=== PATIENT | female | born 1985 | race Caucasian/White ===

== ENCOUNTER 2020-06-15 13:09 | Emergency (ER) | payer SELFPAY ==
[2020-06-15 14:50] VITALS: BP 137/79; PULSE 76; RESP 18; TEMP 37.5; O2SAT 94; BMI 45.1
--- NOTE | 2020-06-15 16:48 | ED_ITS ---
HPI - Abdominal Pain General Chief Complaint: Abdominal Pain Stated Complaint: abd pain, n/v/ Time Seen by Provider: 06/15/20 15:31 Source: patient Mode of arrival: ambulatory Limitations: no limitations History of Present Illness HPI narrative: 34-year-old female previously healthy here with complaints of abdominal pain for the last 3 weeks. The patient tells me she has had mid abdominal pain for the last 3 weeks which is worsened with eating and is improved with passing flatus. She tells me she has struggled with alternating diarrhea and constipation. She intermittently takes laxatives to help her move the bowels but they are very hard and small. And at times due to laxative she has diarrhea. She has had some intermittent associated nausea and vomiting after eating. Denies fevers, chills, urinary symptoms. No rectal bleeding, hematemesis. MD elicited complaint: abdominal pain Pertinent past history: none Onset (ago): week(s) Pain Consistency: intermittent Location: epigastric Severity: mild Quality: burning Radiation: epigastric Migration to: no migration Exacerbating factors: eating Relieving factors: bowel movement and other (flatus ) Associated symptoms: nausea, vomiting, diarrhea and constipation Treatments prior to arrival: other (laxatives ) Related Data Previous Rx's Medication Instructions Recorded dicyclomine 10 mg PO TID PRN #10 cap 06/15/20 omeprazole 20 mg PO DAILY #20 cap 06/15/20 Allergies Allergy/AdvReac Type Severity Reaction Status Date / Time codeine Allergy Rash Verified 06/15/20 14:54 Review of Systems Review of Systems Yes all other systems are reviewed and are negative Constitutional: Reports no additional constitutional complaints, Denies body ache(s), Denies chills, Denies fever(s), Denies headache(s) and Denies weakness Eyes: Reports no additional eye complaints and Denies change in vision Reports system reviewed and no additional complaints, except as documented, Denies dizziness, Denies headache(s), Denies nasal congestion, Denies nasal discharge and Denies neck pain Cardiovascular: Reports no additional cardiovascular complaints, Denies chest pain, Denies leg edema and Denies dyspnea Respiratory: Reports no additional respiratory complaints, Denies cough and Denies dyspnea Gastrointestinal: Reports no additional gastrointestinal complaints, Reports abdominal pain, Reports constipation, Reports diarrhea, Reports nausea and Reports vomiting Genitourinary: Reports no additional female genitourinary complaints and Denies urinary incontinence Musculoskeletal: Reports no additional musculoskeletal complaints, Denies back pain, Denies arthralgias, Denies joint swelling, Denies neck pain, Denies numbness and Denies tingling Skin/Breast: Reports system reviewed and no additional complaints, except as docu and Denies rash Reports system reviewed and no additional complaints, except as documented, Denies Abnormal speech present, Denies dizziness, Denies headache(s), Denies numbness, Denies tingling and Denies weakness Physical Exam Vital Signs: Vital Signs: Vital Signs Temp Pulse Resp BP Pulse Ox 06/15/20 14:50 99.5 F 76 18 137/79 94 Body Mass Index 45.1 Const: General: cooperative, healthy appearing, comfortable and no acute distress Orientation/consciousness: patient oriented x3 Limitations: no limitations HENMT: Head: Yes normal to inspection Ears: hearing grossly normal bilaterally General nose exam: Normal external nose present Face and sinus: Yes normal facial exam Mouth: Normal oral and palatal mucosa present Throat: Yes posterior oropharynx normal Eyes: General: appearance normal, both eyes and all related structures Pupils: Equal, round and reactive pupils present Neck: Neck: Yes normal visual inspection Chest: Chest palpation & inspection: normal inspection of the chest Resp: Effort & Inspection: normal respiratory effort Auscultation: clear to auscultation bilaterally Cardio: Rate: regular rate Rhythm: regular rhythm Peripheral pulses: Peripheral pulses 2+ throughout GI: Other: +morbidely obese Inspection: Yes normal to inspection Palpation (GI): Soft to palpation and nontender Auscultation: normal bowel sounds Back/Spine/Pelvis: Thoracic/Lumbar Spine: thoracic and lumbar spine normal to inspection Skin: General skin exam: no rashes or lesions noted Neuro: General: patient oriented x3, no focal motor deficits and normal sensation to monofilament Cranial nerves: Yes Equal, round and reactive pupils present Cognition (Neuro): normal cognition Speech: No Abnormal speech present Gait exam (Neuro): Normal gait present Motor exam (neuro): 5/5 motor strength present throughout Extrem: General: Yes normal to inspection Course Course Course Narrative: 34-year-old female here with intermittent abdominal pain with alternating diarrhea and constipation and associated nausea and vomiting post eating for the last 2 weeks. Exam patient is very well-appearing, well- hydrated appearing her abdomen is soft and nontender. Most of her symptoms occur after eating food and are improved with passing flatus. HPI sounds more likely IBS. Will check labs, UA, ur . 1800- Labs are unremarkable. UA and urine negative. Repeat abdominal exam benign. No focal abdominal pain on exam. Tolerating p.o. with no issues. Will start on PPI and give Bentyl p.r.n. for home. Reviewed worrisome signs and symptoms when to return to the emergency department. Will have follow-up with GI outpatient. Comfortable discharge home. MDM - Abdominal Pain Medical Records Attestation: I reviewed the patient's medical records. Lab Data Attestation: I reviewed the patient's lab results. Result diagrams: 06/15/20 17:00 06/15/20 17:00 Labs: Lab Results 06/15/20 06/15/20 06/15/20 Range/Units 17:00 17:00 17:00 WBC 12.6 H (4.8-10.8) X10*3/uL RBC 4.66 (4.20-5.50) X10*6/uL Hgb 13.1 (12.0-16.0) g/dl Hct 40.2 (37-47) % MCV 86.3 (80-98) fL MCH 28.1 (27.0-33.0) pg MCHC 32.6 (31.0-35.0) g/dl RDW 13.1 (11.0-16.0) % Plt Count 333 (160-400) X10*3/uL MPV 9.7 (9.4-12.3) fL Immature Gran % (Auto) 1.1 H (0.0-0.4) % Neut % (Auto) 72.5 (45-73) % Lymph % (Auto) 18.6 L (20-40) % Kane % (Auto) 3.3 (2-11) % Eos % (Auto) 3.9 (0-4) % Baso % (Auto) 0.6 (0-2) % Lymph # (Auto) 2.4 (1.2-4.9) X10*3/uL [place] # (Auto) 0.4 (0.1-1.2) X10*3/uL Eos # (Auto) 0.5 H (0.0-0.4) X10*3/uL Baso # (Auto) 0.1 (0.0-0.2) X10*3/uL Abs Immat Gran (auto) 0.14 H (0.00-0.03) X10*3/uL Absolute Neuts (auto) 9.2 H (2.0-8.3) X10*3/uL Absolute Nucleated RBC 0.000 (0.0-0.012) X10*3/uL Nucleated RBC % (auto) 0.0 (0.0-0.2) /100WBC Sodium 138 (135-145) mmol/L Potassium 4.2 (3.3-5.1) mmol/l Chloride 100 (96-108) mmol/L Carbon Dioxide 29 (22-29) mmol/L Anion Gap 13 (12-20) BUN 11 (9-16) mg/dL Creatinine 1.03 (0.5-1.4) mg/dL Estim Creat Clear Calc 105.9 Estimated GFR > 60 Random Glucose 110 (60-115) mg/dL Calcium 9.0 (8.4-10.2) mg/dL Total Bilirubin 0.4 (0.0-1.0) mg/dL Direct Bilirubin 0.2 (0.0-0.5) mg/dL AST 54 H (5-31) U/L ALT 42 H (0-31) U/L Alkaline Phosphatase 96 (39-117) U/L Total Protein 7.7 (6.5-8.0) g/dL Albumin 4.3 (3.5-5.0) g/dL Lipase 20 (8-78) U/L Urine Color YELLOW Urine Appearance CLEAR Urine pH 5.5 (5.0-8.0) Ur Specific [place] >= 1.030 H (1.005-1.025) Urine Protein NEG (NEG-TRACE) MG/DL Urine Glucose (UA) NEG (NEG) MG/DL Urine Ketones NEG (NEG) MG/DL Urine Blood NEG (NEG) Urine Nitrite NEG (NEG) Ur Leukocyte Esterase NEG (NEG) Urine Test NEGATIVE (NEGATIVE) Discharge Plan Discharge Clinical Impression: Irritable bowel syndrome Qualifiers: Irritable bowel syndrome type: with both diarrhea and constipation Qualified Code(s): K58.2 - Mixed irritable bowel syndrome Gastritis Qualifiers: Gastritis type: unspecified gastritis Chronicity: acute Gastritis bleeding: without bleeding Qualified Code(s): K29.00 - Acute gastritis without bleeding Patient Disposition: Home, Self-Care Instructions: Gastritis (ED), Irritable Bowel Syndrome (ED) Additional Instructions: Your labs and urine are unremarkable today [place] diet (limit dairy, fatty/greasy foods). After eating stay sitting upright for at least 30 minutes. Avoid eating before bed. Call GI for a follow-up appointment as discussed Prescriptions: New omeprazole 20 mg capsule,delayed release(DR/EC) 20 mg PO DAILY Qty: 20 RF: 0 dicyclomine 10 mg capsule 10 mg PO TID PRN (Reason: pain) Qty: 10 RF: 0 Referrals: Jez Rosenberg [Physician] - 2 days [facility] Past Medical History Attestation statement: The following information was validated with the patient. Source: obtained from family and nursing notes reviewed Social History Social History Alcohol intake: unknown Smoking Status: Unknown if ever smoked Use of substances other than those prescribed or required for medical reasons: No Advance Directives: No Advance Directives Information Provided: Yes
[2020-06-15 17:05] LABS: MANUAL DIFF FLAG NO
[2020-06-15 17:08] LABS: Glucose Urine UA NEG (NEG); Leukocyte Esterase Urine NEG (NEG); Nitrite Urine NEG (NEG); PH 5.5 (5.0-8.0); Specific Gravity - Urine >= 1.030 (1.005-1.025); Urine Blood NEG (NEG); Urine Ketones NEG (NEG); Urine Protein NEG (NEG-TRACE)
[2020-06-15 17:10] LABS: Appearance Urine CLEAR; Color Urine YELLOW
[2020-06-15 17:11] LABS: UPreg QC Valid YES; Urine Pregnancy NEGATIVE (NEGATIVE)
[2020-06-15 17:19] LABS: Basophils Absolute Auto 0.1 X10*3/uL (0.0-0.2); Basophils Percent Auto 0.6 % (0-2); Eosinophils Absolute Auto 0.5 X10*3/uL (0.0-0.4); Eosinophils Percent Auto 3.9 % (0-4); Hematocrit 40.2 % (37-47); Hemoglobin 13.1 g/dl (12.0-16.0); Imm Gran Abs Auto 0.14 X10*3/uL (0.00-0.03); Imm Gran Pct Auto 1.1 % (0.0-0.4); Lymphocytes Absolute Auto 2.4 X10*3/uL (1.2-4.9); Lymphocytes Percent Auto 18.6 % (20-40); Mean Corpuscular HGB Conc 32.6 g/dl (31.0-35.0); Mean Corpuscular Hemoglobin 28.1 pg (27.0-33.0); Mean Corpuscular Volume 86.3 fL (80-98); Mean Platelet Volume 9.7 fL (9.4-12.3); Monocytes Absolute Auto 0.4 X10*3/uL (0.1-1.2); Monocytes Percent Auto 3.3 % (2-11); Neutrophils Absolute Auto 9.2 X10*3/uL (2.0-8.3); Neutrophils Percent Auto 72.5 % (45-73); Platelet Count 333 X10*3/uL (160-400); Red Blood Count 4.66 X10*6/uL (4.20-5.50); Red Cell Distribution Width 13.1 % (11.0-16.0); White Blood Count 12.6 X10*3/uL (4.8-10.8)
[2020-06-15 17:56] LABS: Alanine Aminotransferase 42 U/L (0-31); Albumin Level 4.3 g/dL (3.5-5.0); Alkaline Phosphatase 96 U/L (39-117); Anion Gap 13 (12-20); Aspartate Amino Transferase 54 U/L (5-31); Bilirubin Direct 0.2 mg/dL (0.0-0.5); Bilirubin Total 0.4 mg/dL (0.0-1.0); Blood Urea Nitrogen 11 mg/dL (9-16); Carbon Dioxide 29 mmol/L (22-29); Chloride 100 mmol/L (96-108); Creatinine Clr Calc Pharmacy 105.9; Estimated Glomerular Filt Rate > 60; Glucose Random 110 mg/dL (60-115); Lipase 20 U/L (8-78); Potassium 4.2 mmol/l (3.3-5.1); Sodium 138 mmol/L (135-145); Total Protein 7.7 g/dL (6.5-8.0)
== END 2020-06-15 18:24 | disposition home or self-care (01) ==
PROVIDERS: Nurse Practitioner Family; Emergency Provider Emergency Medicine
DX: K29.00 Acute gastritis without bleeding (principal); K58.2 Mixed irritable bowel syndrome
CPT/HCPCS: 36415; 80048; 80076; 81003; 81025; 83690; 85025; 99283; 99284

== ENCOUNTER 2022-03-11 11:19 | Outpatient (REF) | payer MEDICAID, SELFPAY ==
--- NOTE | ~2022-03-11 | US_ITS ---
EXAMINATION: US PELVIS CLINICAL INFORMATION: Abnormal uterine bleeding. LMP 4-5 years ago. COMPARISON: None TECHNIQUE: Ultrasound of the pelvis is performed using both transabdominal and transvaginal transducers along with Doppler. Transvaginal imaging is performed due to inadequate visualization transabdominally. FINDINGS: The uterus is anteverted and anteflexed measuring 7.2 x 2.8 x 4.5 cm. There is a somewhat atypical architecture of the fundus, raising the possibility of an underlying congenital uterine anomaly. No fibroid identified. The endometrium measures 0.7 cm in thickness and demonstrates some nonspecific cystic observations. The left ovary is not visualized. The right ovary is better delineated on transabdominal images although not entirely visualized measuring approximately 1.7 x 1.4 x 1.8 cm. No free fluid. US/US pelvic and transvaginal IMPRESSION: 1. Questionable congenital uterine anomaly such as bicornuate uterus, suboptimally in this examination. Recommend correlation with a pelvic MRI. 2. Nonspecific endometrial cysts, which could be seen with adenomyosis. This could be also assessed with the above recommended MRI. 3. Suboptimal visualization of the ovaries.
== END 2022-03-11 11:20 | disposition home or self-care (01) ==
LOC: HO.US 11:19
PROVIDERS: Visit Provider Registered Nurse
DX: N93.9 Abnormal uterine and vaginal bleeding, unspecified (principal)
CPT/HCPCS: 76830; 76856

== ENCOUNTER 2023-03-28 09:33 | Emergency (ER) | payer MEDICAID, SELFPAY ==
[2023-03-28 09:45] VITALS: BP 138/87; PULSE 61; RESP 18; TEMP 36.1; O2SAT 99; BMI 57.3
--- NOTE | 2023-03-28 10:16 | ED_ITS ---
HPI - Dental/Oral General Chief complaint: Dental/Oral Stated complaint: facial swelling dental Time Seen by Provider: 03/28/23 09:52 Source: patient and RN notes reviewed Mode of arrival: ambulatory Limitations: no limitations History of Present Illness HPI Narrative: This is a 37-year-old female, past medical history of fibromyalgia, chronic viral hep C, ADHD, bipolar disorder, anxiety, and depression, presenting to the emergency department for evaluation of right-sided facial pain and swelling x2 days. Patient reports that she is in the process of getting all of her teeth extracted, and has an appointment regarding this next week. She states that she has noticed some increasing right-sided upper dental pain for the last several days and woke up this morning with increased facial swelling. She called her dentist office however is unable to be seen until Thursday. Patient denies any fevers, chills, shortness of breath, nausea, vomiting or diarrhea. She has been taking ibuprofen for her symptoms which has provided her with minimal relief. No other complaints or concerns at this time. MD Complaint: tooth pain Location: Tooth # Onset (ago): day(s) Duration: constant Severity: moderate Relieving factors: NSAIDs Exacerbating factors: nothing Context: history of dental caries Treatment prior to arrival: none Related Data Home Medications Medication Instructions Recorded Confirmed clonidine HCl 0.1 mg tablet 0.1 mg PO Q8H PRN anxiety 07/12/20 09/18/20 methadone 10 mg/mL oral 80 mg PO DAILY 07/12/20 09/18/20 concentrate (Methadone Intensol) Previous Rx's Medication Instructions Recorded albuterol sulfate 90 mcg/actuation 2 puff inhalation Q6H PRN 07/12/20 aerosol inhaler shortness of breath or wheezing #8.5 grams dicyclomine 10 mg capsule 10 mg PO TID PRN pain 1 month #60 07/12/20 caps fluticasone 100 mcg-salmeterol 50 1 ea PO DAILY #60 ea 11/20/20 mcg/dose blistr powdr for inhalation (Advair Diskus) omeprazole 20 mg capsule,delayed 20 mg PO DAILY #30 caps 12/27/20 release amoxicillin 875 mg-potassium 1 tab PO BID 7 days #14 tabs 03/28/23 clavulanate 125 mg tablet ibuprofen 600 mg tablet 600 mg PO Q6H PRN pain #30 tabs 03/28/23 Allergies Allergy/AdvReac Type Severity Reaction Status Date / Time codeine Allergy Rash Verified 09/18/20 12:23 Review of Systems Review of Systems: Yes all other systems are reviewed and are negative [facility] Past Medical History Surgical History (Updated 09/03/21 @ 09:16 by FABIANA Morales) History of cholecystectomy Social History Social History Alcohol intake: unknown Advance Directives: No Advance Directives Information Provided: No Physical Exam Vital Signs: Vital Signs: Last Vital Signs Temp 97.0 F 03/28/23 09:45 Pulse 61 03/28/23 09:45 Resp 18 03/28/23 09:45 BP 138/87 03/28/23 09:45 Pulse Ox 99 03/28/23 09:45 O2 Del Method Room Air 03/28/23 09:45 BMI result Body Mass Index 57.3 Const: Other: General: Awake, alert, and oriented X3. No acute distress. Mild right-sided facial swelling, without erythema or induration, facial swelling extends just inferior to the warm. HEENT: Normal inspection, uvula midline, no oropharyngeal erythema or edema. Airway patent. see below for dental exam CVS: Normal heart rate and rhythm. Pulses normal. Respiratory: No respiratory distress, lungs clear to auscultation bilaterally. Skin: Warm, dry, no rashes noted to exposed skin. Normal skin color. Normal skin turgor. Extremities: Normal to inspection Neuro: Oriented X 3. No motor deficit. No sensory deficit. HEENT: Teeth image: 1. Teeth 1, 2, and 3 tender to palpation with mild dental decay. No surrounding gingival erythema, edema, fluctuance or induration. Medical Decision Making Medical Decision Making MDM Narrative: 37-year-old female presenting to emergency department for evaluation of right- sided facial swelling and dental pain. Patient is nontoxic appearing, all vital signs within normal limits. Patient is in the process of getting all of her teeth removed, last on antibiotics multiple months ago. She has an appointment with her dentist on Thursday. Patient's symptoms and presentation consistent with dental abscess, will treat with Augmentin. Encouraged to take the full course even if feeling better. Given return precautions if any new or worsening sympto ms occur. Patient understands and agrees with plan. Patient stable for discharge. Differential Diagnosis Differential Diagnoses: The differential diagnosis associated with the presentation includes Dental abscess, dental decay, dental pain, TMJ Discharge Plan Discharge Clinical Impression: Dental abscess, Pain, dental Patient Disposition: Home, Self-Care Instructions: Dental Abscess (ED), Toothache (ED) Additional Instructions: Please take prescribed antibiotic as directed. Finish the entire course even if your feeling better. Take prescribed ibuprofen as directed as needed for pain. You may alternate this with Tylenol. Make sure you eat with taking ibuprofen as this can cause upset stomach. Watch for any new or worsening symptoms including but not limited to worsening swelling, fevers or chills, worsening pain. If any of these occur or any other new or worsening symptoms please return for re-evaluation. Follow-up with your dentist as scheduled next week. Prescriptions: New ibuprofen 600 mg tablet 600 mg PO Q6H PRN (Reason: pain) Qty: 30 0RF amoxicillin-pot clavulanate 875-125 mg tablet 1 tab PO BID 7 Days Qty: 14 0RF No Action fluticasone propion-salmeterol [Advair Diskus] 100-50 mcg/dose blister with device 1 ea PO DAILY Qty: 60 2RF omeprazole 20 mg capsule,delayed release(DR/EC) 20 mg PO DAILY Qty: 30 0RF methadone [Methadone Intensol] 10 mg/mL concentrate 80 mg PO DAILY clonidine HCl 0.1 mg tablet 0.1 mg PO Q8H PRN (Reason: anxiety) dicyclomine 10 mg capsule 10 mg PO TID PRN (Reason: pain) 30 Days Qty: 60 1RF albuterol sulfate 90 mcg/actuation HFA aerosol inhaler 2 puff inhalation Q6H PRN (Reason: shortness of breath or wheezing) Qty: 8.5 4RF Interventions: ED Discharge Assessment Last Done: 03/28/23 10:37 Discharge Date/Time: 03/28/23 10:37
== END 2023-03-28 10:37 | disposition home or self-care (01) ==
PROVIDERS: Emergency Provider Emergency Medicine; PCP Registered Nurse
DX: K04.7 Periapical abscess without sinus (principal); K08.89 Other specified disorders of teeth and supporting structures
CPT/HCPCS: 99283

== ENCOUNTER 2023-04-02 15:35 | Outpatient (REF) | payer MEDICAID, SELFPAY ==
[2023-04-02 17:25] LABS: MANUAL DIFF FLAG NO
[2023-04-02 18:08] LABS: Basophils Absolute Auto 0.1 X10*3/uL (0.0-0.2); Basophils Percent Auto 0.6 % (0-2); Eosinophils Absolute Auto 0.5 X10*3/uL (0.0-0.4); Eosinophils Percent Auto 5.3 % (0-4); Hematocrit 38.8 % (37.0-47.0); Hemoglobin 12.6 g/dl (12.0-16.0); Imm Gran Abs Auto 0.04 X10*3/uL (0.00-0.03); Imm Gran Pct Auto 0.4 % (0.0-0.4); Lymphocytes Absolute Auto 2.6 X10*3/uL (1.2-4.9); Lymphocytes Percent Auto 28.6 % (20-40); Mean Corpuscular HGB Conc 32.5 g/dl (31.0-35.0); Mean Corpuscular Hemoglobin 27.3 pg (27.0-33.0); Mean Platelet Volume 10.3 fL (9.4-12.3); Monocytes Absolute Auto 0.5 X10*3/uL (0.1-1.2); Monocytes Percent Auto 5.5 % (2-11); Neutrophils Absolute Auto 5.4 x10*3/uL (2.0-8.3); Neutrophils Percent Auto 59.6 % (45-73); Platelet Count 384 X10*3/uL (160-400); Red Blood Count 4.62 X10*6/uL (4.20-5.50); Red Cell Distribution Width 12.9 % (11.0-16.0)
[2023-04-02 18:47] LABS: Alanine Aminotransferase 27 U/L (0-31); Albumin Level 4.3 g/dL (3.5-5.0); Alkaline Phosphatase 82 U/L (39-117); Anion Gap 13 (12-20); Aspartate Amino Transferase 27 U/L (5-31); Bilirubin Total 0.2 mg/dL (0.0-1.0); Blood Urea Nitrogen 12 mg/dL (9-16); Calcium 9.9 mg/dL (8.4-10.2); Carbon Dioxide 30 mmol/L (22-29); Chloride 103 mmol/L (96-108); Estimated Glomerular Filt Rate > 60; Glucose Random 84 mg/dL (60-115); Potassium 4.1 mmol/L (3.3-5.1); Sodium 142 mmol/L (135-145); Total Protein 7.7 g/dL (6.5-8.0)
[2023-04-08 23:13] LABS: Estradiol Ultra Sensitive 23 pg/mL
== END 2023-04-02 15:36 | disposition home or self-care (01) ==
LOC: HO.HHCL 15:35
PROVIDERS: Visit Provider Registered Nurse
DX: N91.1 Secondary amenorrhea (principal)
CPT/HCPCS: 36415; 80053; 82670; 85025

== ENCOUNTER 2023-04-20 13:15 | Emergency (ER) | payer MEDICAID, SELFPAY ==
[2023-04-20 13:49] VITALS: BP 139/88; PULSE 76; RESP 16; TEMP 36.6; O2SAT 97; BMI 56.0
--- NOTE | 2023-04-20 13:50 | ED_ITS ---
HPI - General Adult General Chief complaint: General Medical Stated complaint: neck/ shoulder pain Time Seen by Provider: 04/20/23 13:59 Source: patient Mode of arrival: ambulatory Limitations: no limitations History of Present Illness HPI narrative: 37-year-old female with a history fibromyalgia, ADHD, former substance abuse, history of hepatitis-C, ADHD, asthma, depression, anxiety, bipolar disorder, HLD who presents to the ER for evaluation of nontraumatic neck pain for the last 3 days along with possible recurrent right upper dental infection. Patient states that for the last 3 days she has had bilateral neck pain radiating to the base of her skull, her bilateral shoulders and down her back. It is worse with movement and palpation. She has been taking ibuprofen and trying to take hot showers to relax the muscles with minimal relief. She denies any injury or trauma. she denies any numbness or tingling radiating into her arms. patient also reports being seen here in the beginning of March for a dental infection. She completed a course of antibiotics. A few days ago she noticed that the abscess ruptured and had drainage of pus. She reports ongoing pain in the tooth. She has an appointment with a oral surgeon coming up for complete dental extractions. She denies any difficulty opening or closing her jaw. No facial swelling. No fever or chills. MD complaint: Neck and shoulder pain, right upper dental pain Location: neck Radiation: back and extremity Severity: moderate Quality: stabbing and aching Pain Consistency: constant Relieving factors: movement Exacerbating factors: rest Associated symptoms: denies other symptoms Treatments prior to arrival: none Related Data Home Medications Medication Instructions Recorded Confirmed clonidine HCl 0.1 mg tablet 0.1 mg PO Q8H PRN anxiety 07/12/20 09/18/20 methadone 10 mg/mL oral 80 mg PO DAILY 07/12/20 09/18/20 concentrate (Methadone Intensol) Previous Rx's Medication Instructions Recorded albuterol sulfate 90 mcg/actuation 2 puff inhalation Q6H PRN 07/12/20 aerosol inhaler shortness of breath or wheezing #8.5 grams dicyclomine 10 mg capsule 10 mg PO TID PRN pain 1 month #60 07/12/20 caps fluticasone 100 mcg-salmeterol 50 1 ea PO DAILY #60 ea 11/20/20 mcg/dose blistr powdr for inhalation (Advair Diskus) omeprazole 20 mg capsule,delayed 20 mg PO DAILY #30 caps 12/27/20 release amoxicillin 875 mg-potassium 1 tab PO BID 7 days #14 tabs 03/28/23 clavulanate 125 mg tablet ibuprofen 600 mg tablet 600 mg PO Q6H PRN pain #30 tabs 03/28/23 amoxicillin 875 mg-potassium 1 tab PO BID #20 tabs 04/20/23 clavulanate 125 mg tablet chlorhexidine gluconate 0.12 % 15 ml buccal BID #120 mL 04/20/23 mouthwash (Peridex) cyclobenzaprine 10 mg tablet 10 mg PO TID PRN muscle spasm #14 04/20/23 tabs lidocaine 5 % topical patch 1 patch topical DAILY #15 ea 04/20/23 Allergies Allergy/AdvReac Type Severity Reaction Status Date / Time codeine Allergy Rash Verified 04/20/23 13:49 Review of Systems Review of Systems: Yes all other systems are reviewed and are negative PMFSH Past Medical History Surgical History (Updated 09/03/21 @ 09:16 by FABIANA Morales) History of cholecystectomy Social History Social History Alcohol intake: unknown Advance Directives: No Advance Directives Information Provided: Yes Physical Exam ED Vital Signs: Vital Signs - 24 hr 04/20/23 13:49 Temperature 97.8 F Pulse Rate 76 Respiratory Rate 16 Blood Pressure 139/88 Pulse Oximetry 97 Oxygen Delivery Method Room Air BMI result Body Mass Index 56.0 Appearance: Alert. Oriented X3. No acute distress. Head: normocephalic, atraumatic. Eyes: Pupils equal, round and reactive to light. ENT: Pharynx with moist mucus membranes. poor dentition. tooth #5 with decay and assocaited gingival swelling, pustule draining purulent material. No trisumus. No tonsillar swelling or exudate. Neck: Normal inspection. Neck supple. No anterior neck swelling. Soft tissue tenderness bilaterally with palpable spasm of upper trapezius. CVS: Normal heart rate and rhythm. Pulses normal. Respiratory: No respiratory distress. Breath sounds normal. Skin: Skin warm and dry. Normal skin color. Normal skin turgor. No rashes. Extremities: No lower extremity edema. No joint swelling. Neuro/psych: Oriented X 3. No motor deficit. No sensory deficit. CN II-XII intact. Normal speech and cognition. Course Course Course Narrative: This is an RME: Additional HPI, ROS, PE not included below will be deferred to primary provider. 37 year old female presenting with three days of atraumatic bilateral neck pain. Denies heavy lifting or strenuous exercise. Also had a recent dental abscess that was treated here and believes it has not resolved since. The tooth is on the top right. Denies fevers, chills, paresthesias. Patient rates the neck/back pain an 8-9/10. Plan: [facility] Medical Decision Making Medical Decision Making MDM Narrative: 37-year-old female presents to the ER for evaluation nontraumatic bilateral posterior neck pain that radiates her bilateral shoulders for the last 3 days. She has palpable soft tissue tenderness and muscular spasm on examination. No meningeal signs. Exam and clinical presentation are most consistent with cervical strain and muscle spasm. She also reports right upper dental pain, swelling, purulent drainage, recently treated for an abscess. She has plan for entire mouth extractions with oral surgeon coming up. She has no trismus on examination, no facial swelling. She has an area of drainage present, no need for additional incision and drainage today. Will restart her on antibiotics, add antiseptic mouthwash and muscle relaxer for her neck/back pain at this time patient is stable for discharge home with outpatient follow-up. Patient agrees with plan. Differential Diagnosis Differential Diagnoses: The differential diagnosis associated with the presentation includes Cervical strain/ cervical spasm, torticollis, cervical radiculopathy, fibromyalgia flare, less likely cervical fracture or meningitis dental abscess, dental decay, toothache, no evidence of Elver's angina External Record Review External record reviewed: Outpatient record, Prior outpatient labs and Prior outpatient radiology Prescription Management I considered prescription management with: Pain Medication and Antibiotic Chronic Conditions Patient?s care impacted by: Other ( fibromyalgia, poor dentition) Critical Care Time Critical Care Time Critical Care Time: No Discharge Plan Discharge Clinical Impression: Dental abscess, Cervical muscle strain Patient Disposition: Home, Self-Care Instructions: Cervical Strain (DC), Dental Abscess (ED) Additional Instructions: Your pain is most likely due to muscle strain and spasm. Use a heating pad on low/medium heat several times per day and gently massage as tolerated. Take medications as prescribed to help with pain and discomfort. Follow up with your Primary Care Doctor as needed. Take the prescribed antibiotics as directed, complete the entire course and do not miss any doses Follow up with your dentist. If you develop new or worsening symptoms call 911 or come back to the ER for further evaluation. Prescriptions: New amoxicillin-pot clavulanate 875-125 mg tablet 1 tab PO BID Qty: 20 0RF cyclobenzaprine 10 mg tablet 10 mg PO TID PRN (Reason: muscle spasm) Qty: 14 0RF lidocaine 5 % adhesive patch,medicated 1 patch topical DAILY Qty: 15 0RF Rx Instructions: leave on most painful area for up to 12 hrs chlorhexidine gluconate [Peridex] 0.12 % mouthwash 15 ml buccal BID Qty: 120 0RF No Action fluticasone propion-salmeterol [Advair Diskus] 100-50 mcg/dose blister with device 1 ea PO DAILY Qty: 60 2RF omeprazole 20 mg capsule,delayed release(DR/EC) 20 mg PO DAILY Qty: 30 0RF ibuprofen 600 mg tablet 600 mg PO Q6H PRN (Reason: pain) Qty: 30 0RF amoxicillin-pot clavulanate 875-125 mg tablet 1 tab PO BID 7 Days Qty: 14 0RF methadone [Methadone Intensol] 10 mg/mL concentrate 80 mg PO DAILY clonidine HCl 0.1 mg tablet 0.1 mg PO Q8H PRN (Reason: anxiety) dicyclomine 10 mg capsule 10 mg PO TID PRN (Reason: pain) 30 Days Qty: 60 1RF albuterol sulfate 90 mcg/actuation HFA aerosol inhaler 2 puff inhalation Q6H PRN (Reason: shortness of breath or wheezing) Qty: 8.5 4RF Discharge Date/Time: 04/20/23 15:18
== END 2023-04-20 15:18 | disposition home or self-care (01) ==
PROVIDERS: Emergency Provider Emergency Medicine; PCP Registered Nurse
DX: M54.2 Cervicalgia (principal); K04.7 Periapical abscess without sinus
CPT/HCPCS: 99281

== ENCOUNTER 2023-05-31 13:23 | Emergency (ER) | payer MEDICAID, SELFPAY ==
[2023-05-31 13:32] VITALS: BP 157/90; PULSE 77; RESP 20; TEMP 35.6; O2SAT 96; BMI 56.4
--- NOTE | 2023-05-31 13:38 | ED.GENADULT ---
HPI - General Adult General Chief complaint: Dental/Oral Stated complaint: Facial swelling Time Seen by Provider: 05/31/23 13:37 Source: patient Mode of arrival: ambulatory Limitations: no limitations History of Present Illness HPI narrative: 37 yold female presents to the ED for left lower facial swelling and tooth ache. patient states she has poor dental hygeine ( states all her teeth needs to be extracted). Patient this has happened before and improved with antibiotics. patient denies any drooling, change in voice, difficulty swallowing foods/liquids, chest pain, or shortenss of breath. Patient denies any new trauma. Related Data Home Medications Medication Instructions Recorded Confirmed clonidine HCl 0.1 mg tablet 0.1 mg PO Q8H PRN anxiety 07/12/20 09/18/20 methadone 10 mg/mL oral 80 mg PO DAILY 07/12/20 09/18/20 concentrate (Methadone Intensol) Previous Rx's Medication Instructions Recorded albuterol sulfate 90 mcg/actuation 2 puff inhalation Q6H PRN 07/12/20 aerosol inhaler shortness of breath or wheezing #8.5 grams dicyclomine 10 mg capsule 10 mg PO TID PRN pain 1 month #60 07/12/20 caps fluticasone 100 mcg-salmeterol 50 1 ea PO DAILY #60 ea 11/20/20 mcg/dose blistr powdr for inhalation (Advair Diskus) omeprazole 20 mg capsule,delayed 20 mg PO DAILY #30 caps 12/27/20 release amoxicillin 875 mg-potassium 1 tab PO BID 7 days #14 tabs 03/28/23 clavulanate 125 mg tablet ibuprofen 600 mg tablet 600 mg PO Q6H PRN pain #30 tabs 03/28/23 amoxicillin 875 mg-potassium 1 tab PO BID #20 tabs 04/20/23 clavulanate 125 mg tablet chlorhexidine gluconate 0.12 % 15 ml buccal BID #120 mL 04/20/23 mouthwash (Peridex) cyclobenzaprine 10 mg tablet 10 mg PO TID PRN muscle spasm #14 04/20/23 tabs lidocaine 5 % topical patch 1 patch topical DAILY #15 ea 04/20/23 amoxicillin 875 mg-potassium 1 tab PO Q12H 10 days #20 tabs 05/31/23 clavulanate 125 mg tablet naproxen 500 mg tablet 500 mg PO BID PRN pain #14 tabs 05/31/23 Allergies Allergy/AdvReac Type Severity Reaction Status Date / Time codeine Allergy Rash Verified 04/20/23 13:49 Review of Systems Review of Systems: TOotache and left lower facial swelling Yes all other systems are reviewed and are negative [facility] Past Medical History Surgical History (Updated 09/03/21 @ 09:16 by FABIANA Morales) History of cholecystectomy Social History Social History Alcohol intake: unknown Advance Directives: No Physical Exam ED Vital Signs: Vital Signs - 24 hr 05/31/23 13:32 Temperature 96.0 F L Pulse Rate 77 Respiratory Rate 20 Blood Pressure 157/90 H Pulse Oximetry 96 Oxygen Delivery Method Room Air BMI result Body Mass Index 56.4 Const General: cooperative, healthy appearing, comfortable, no acute distress, well developed and alert Orientation/consciousness: oriented to person, oriented to place, oriented to time and patient oriented x3 HENMT Other: Negative for drooling, change in voice, shortness of breath, or foaming Head: Yes normal to inspection, Yes No palpable skull fracture present, Yes normocephalic and Yes atraumatic Head images: 1. slight swelling and tenderness on palpation. negative for mass, redness, or fluctulance on palpation. Teeth image: 1. positive for yellow collection and tendenress. negative trismuss. negative for gum swelling or erythema. negative trismus. 2. positive for yellow collection and tendenress. negative trismuss. negative for gum swelling or erythema. Negative for trismus Throat: Yes posterior oropharynx normal, Yes tonsils normal and Yes uvula midline Eyes General: appearance normal, both eyes and all related structures Neck Neck: Yes normal visual inspection, Yes full ROM, Yes no lymphadenopathy, Yes no meningeal signs, Yes trachea midline, Yes supple, No anterior neck swelling and No tender Chest Chest palpation & inspection: normal inspection of the chest and normal palpation of entire chest wall Resp Effort & Inspection: normal respiratory effort and able to speak in complete sentences Auscultation: clear to auscultation bilaterally Cardio Jugular venous distension: no JVD Heart sounds: S1 normal heart sound present and S2 normal heart sound present GI Inspection: Yes normal to inspection and No abdominal wall ecchymosis Palpation (GI): Soft to palpation, not firm, nontender, no guarding and not rigid General: No CVA tenderness and Yes no CVA tenderness Back/Spine/Pelvis Back: no CVA tenderness, No CVA tenderness and No back tenderness Skin General skin exam: no rashes or lesions noted, elasticity normal and turgor normal Neuro General: oriented to person, oriented to place, oriented to time, patient oriented x3, gait normal, tone normal, moves all extremities, Normal light touch and pain sensation, no meningeal signs, CN's II-XI intact bilaterally and normal sensation to monofilament Extrem General: Yes normal to inspection and Yes full ROM Psych Appearance: grossly normal, well kempt and not disheveled Course Course Course Narrative: RME: 37 yold female presents to the ED for left lower facial swelling and tooth ache. patient states this has occurred before and improved with oral antiibiotics and motirn Medical Decision Making Medical Decision Making MDM Narrative: RME: 37 yold female presents to the ED for Left lower face swelling and infected tooth. Patient states no drooling, sOB, chest pain, neck swelling, or recent trauma. Patietn not in distress. LEft lower molar tooth is infected. Patient speaking in full sentences. Patient not in distress. Swelling due to infected tooth. not suspecting raquel angina, retropharyngeal abscess, peritonsillar abscess, or osteomyelitits. Patient informed to follow-up with dentist. Patient informed to return to ED immediately if she has any worrisome signs that were explained to her. Patient informed to follow-up with dentist Differential Diagnosis Differential Diagnoses: The differential diagnosis associated with the presentation includes (dental abscess, raquel angina, retropharyngeal abscess, pertitonsillar abscess) External Record Review External record reviewed: Other (prior Visits) Prescription Management I considered prescription management with: Pain Medication and Antibiotic Discharge Plan Discharge Clinical Impression: Toothache Patient Disposition: Home, Self-Care Instructions: Toothache (ED) Additional Instructions: Return to the ED for any increased swelling of jaw, swelling spreading to neck, drooling, change in voice, chest pain, shortness of breath, intractable fever, chills, worsening toothache, or any other concerning symptoms. Recommend follow-up with dentist. Cause of swelling from infected tooth that would need to be extracted Prescriptions: New amoxicillin-pot clavulanate 875-125 mg tablet 1 tab PO Q12H 10 Days Qty: 20 0RF naproxen 500 mg tablet 500 mg PO BID PRN (Reason: pain) Qty: 14 0RF No Action fluticasone propion-salmeterol [Advair Diskus] 100-50 mcg/dose blister with device 1 ea PO DAILY Qty: 60 2RF omeprazole 20 mg capsule,delayed release(DR/EC) 20 mg PO DAILY Qty: 30 0RF amoxicillin-pot clavulanate 875-125 mg tablet 1 tab PO BID Qty: 20 0RF cyclobenzaprine 10 mg tablet 10 mg PO TID PRN (Reason: muscle spasm) Qty: 14 0RF lidocaine 5 % adhesive patch,medicated 1 patch topical DAILY Qty: 15 0RF Rx Instructions: leave on most painful area for up to 12 hrs chlorhexidine gluconate [Peridex] 0.12 % mouthwash 15 ml buccal BID Qty: 120 0RF ibuprofen 600 mg tablet 600 mg PO Q6H PRN (Reason: pain) Qty: 30 0RF amoxicillin-pot clavulanate 875-125 mg tablet 1 tab PO BID 7 Days Qty: 14 0RF methadone [Methadone Intensol] 10 mg/mL concentrate 80 mg PO DAILY clonidine HCl 0.1 mg tablet 0.1 mg PO Q8H PRN (Reason: anxiety) dicyclomine 10 mg capsule 10 mg PO TID PRN (Reason: pain) 30 Days Qty: 60 1RF albuterol sulfate 90 mcg/actuation HFA aerosol inhaler 2 puff inhalation Q6H PRN (Reason: shortness of breath or wheezing) Qty: 8.5 4RF Interventions: ED Discharge Assessment Last Done: 05/31/23 13:49 Discharge Date/Time: 05/31/23 13:49 Print Language: Icelandic
== END 2023-05-31 13:49 | disposition home or self-care (01) ==
LOC: HO.ED 13:46
PROVIDERS: Emergency Provider Emergency Medicine; PCP Registered Nurse
DX: K08.89 Other specified disorders of teeth and supporting structures (principal); R22.1 Localized swelling, mass and lump, neck; Z79.899 Other long term (current) drug therapy
CPT/HCPCS: 99282

== ENCOUNTER 2023-06-18 10:08 | Outpatient (REF) | payer MEDICAID, SELFPAY ==
--- NOTE | ~2023-06-18 | XR_ITS ---
EXAMINATION: XR THORACIC SPINE, CERVICAL SPINE CLINICAL INFORMATION: Neck pain, back pain COMPARISON: None TECHNIQUE: 7 views of the cervical spine. 2 views. Evaluation severely limited due to body habitus. FINDINGS: Thoracic spine: Visualization severely limited due to body habitus. Surgical clips in the right upper quadrant of the abdomen. Moderate multilevel degenerative changes in the thoracic spine. No thoracic vertebral body compression fractures appreciated. CERVICAL SPINE: Straightening of the normal cervical lordosis. Visualization of C6 and C7 limited due to overlying soft tissues. Mild multilevel hypertrophic change in the mid to lower cervical spine. Disc space heights are maintained at C2-C6 levels. C6-C7 disc space poorly visualized due to overlying structures and cannot be assessed XR/XR thoracic spine 2V IMPRESSION: 1. Moderate multilevel degenerative changes in the thoracic spine. No thoracic vertebral body compression fractures appreciated. 2. Mild multilevel hypertrophic change in the mid to lower cervical spine. C6-C7 disc space poorly visualized due to overlying structures and cannot be assessed. 3. Severely limited visualization due to body habitus. Additional imaging with CT scan or MRI should be considered for better visualization as these modalities are much more sensitive for detection of fracture or other underlying pathology.
--- NOTE | ~2023-06-18 | XR_ITS ---
EXAMINATION: XR THORACIC SPINE, CERVICAL SPINE CLINICAL INFORMATION: Neck pain, back pain COMPARISON: None TECHNIQUE: 7 views of the cervical spine. 2 views. Evaluation severely limited due to body habitus. FINDINGS: Thoracic spine: Visualization severely limited due to body habitus. Surgical clips in the right upper quadrant of the abdomen. Moderate multilevel degenerative changes in the thoracic spine. No thoracic vertebral body compression fractures appreciated. CERVICAL SPINE: Straightening of the normal cervical lordosis. Visualization of C6 and C7 limited due to overlying soft tissues. Mild multilevel hypertrophic change in the mid to lower cervical spine. Disc space heights are maintained at C2-C6 levels. C6-C7 disc space poorly visualized due to overlying structures and cannot be assessed XR/XR cervical spine 5V IMPRESSION: 1. Moderate multilevel degenerative changes in the thoracic spine. No thoracic vertebral body compression fractures appreciated. 2. Mild multilevel hypertrophic change in the mid to lower cervical spine. C6-C7 disc space poorly visualized due to overlying structures and cannot be assessed. 3. Severely limited visualization due to body habitus. Additional imaging with CT scan or MRI should be considered for better visualization as these modalities are much more sensitive for detection of fracture or other underlying pathology.
== END 2023-06-18 10:09 | disposition home or self-care (01) ==
LOC: HO.HHCX 10:08
PROVIDERS: Visit Provider Registered Nurse
DX: M54.6 Pain in thoracic spine (principal); G89.29 Other chronic pain; M54.2 Cervicalgia
CPT/HCPCS: 72050; 72070

== ENCOUNTER 2023-08-05 10:58 | Outpatient (REF) | payer MEDICAID, SELFPAY ==
[2023-08-05 13:20] LABS: MANUAL DIFF FLAG NO
[2023-08-05 13:31] LABS: Basophils Absolute Auto 0.1 X10*3/uL (0.0-0.2); Basophils Percent Auto 0.8 % (0-2); Eosinophils Absolute Auto 0.4 X10*3/uL (0.0-0.4); Eosinophils Percent Auto 3.3 % (0-4); Hematocrit 44.5 % (37.0-47.0); Hemoglobin 14.6 g/dl (12.0-16.0); Imm Gran Abs Auto 0.07 X10*3/uL (0.00-0.03); Imm Gran Pct Auto 0.6 % (0.0-0.4); Lymphocytes Absolute Auto 3.1 X10*3/uL (1.2-4.9); Lymphocytes Percent Auto 25.6 % (20-40); Mean Corpuscular HGB Conc 32.8 g/dl (31.0-35.0); Mean Corpuscular Hemoglobin 27.5 pg (27.0-33.0); Mean Corpuscular Volume 83.8 fL (80.0-98.0); Mean Platelet Volume 10.3 fL (9.4-12.3); Monocytes Absolute Auto 0.5 X10*3/uL (0.1-1.2); Monocytes Percent Auto 4.2 % (2-11); Neutrophils Absolute Auto 7.8 x10*3/uL (2.0-8.3); Neutrophils Percent Auto 65.5 % (45-73); Platelet Count 367 X10*3/uL (160-400); Red Blood Count 5.31 X10*6/uL (4.20-5.50); Red Cell Distribution Width 12.3 % (11.0-16.0)
[2023-08-05 13:42] LABS: Anion Gap 16 (12-20); Blood Urea Nitrogen 13 mg/dL (9-16); Calcium 10.2 mg/dL (8.4-10.2); Carbon Dioxide 28 mmol/L (22-29); Chloride 99 mmol/L (96-108); Estimated Glomerular Filt Rate > 60; Glucose Random 115 mg/dL (60-115); Potassium 4.3 mmol/L (3.3-5.1); Sodium 139 mmol/L (135-145)
== END 2023-08-05 10:59 | disposition home or self-care (01) ==
LOC: HO.HHCL 10:58
PROVIDERS: Visit Provider Registered Nurse
DX: Z01.818 Encounter for other preprocedural examination (principal); I10 Essential (primary) hypertension
CPT/HCPCS: 36415; 80048; 85025

== ENCOUNTER 2023-11-12 17:46 | Outpatient (REF) | payer MEDICAID, SELFPAY ==
[2023-11-13 04:12] LABS: CT PCR NOT DETECTED (Not Detect.); NG PCR NOT DETECTED (Not Detect.)
== END 2023-11-12 17:47 | disposition home or self-care (01) ==
LOC: HO.HHCLNP 17:46
PROVIDERS: Visit Provider Family Medicine
DX: Z11.3 Encounter for screening for infections with a predominantly sexual mode of transmission (principal)
CPT/HCPCS: 0353U

== ENCOUNTER 2023-12-11 19:17 | Outpatient (REF) | payer MEDICAID, SELFPAY | END 2023-12-11 19:18 | disposition home or self-care (01) | LOC: HO.HHCLNP 19:17 | PROVIDERS: Visit Provider Emergency Medicine | DX: R39.9 Unspecified symptoms and signs involving the genitourinary system (principal) | CPT/HCPCS: 87086 ==

== ENCOUNTER 2024-02-05 09:23 | Outpatient (REF) | payer MEDICAID, SELFPAY | END 2024-02-05 09:24 | disposition home or self-care (01) | LOC: HO.HHCLNP 09:23 | PROVIDERS: Visit Provider Student in an Organized Health Care Education/Training Program | DX: Z13.89 Encounter for screening for other disorder (principal) ==

== ENCOUNTER 2024-03-01 17:51 | Outpatient (REF) | payer MEDICAID, SELFPAY ==
[2024-03-02 09:13] LABS: Bacterial Vaginosis PCR NEGATIVE (Negative); Candida Group PCR DETECTED (Not Detect); Candida glab krusei PCR DETECTED (Not Detect); Trichomonas vaginalis PCR NOT DETECTED (Not Detect)
== END 2024-03-01 17:52 | disposition home or self-care (01) ==
LOC: HO.HHCLNP 17:51
PROVIDERS: Visit Provider Emergency Medicine
DX: R30.0 Dysuria (principal)
CPT/HCPCS: 0352U; 87086